=== PATIENT | female | born 1950 | race Caucasian/White ===

== ENCOUNTER 2019-11-07 13:06 | Emergency (ER) | payer MEDICARE, OTHER ==
[~2019-11-07] VITALS: Ht 160 cm; Wt 69.6 kg
[2019-11-07 13:35] VITALS: BP 138/77
--- NOTE | 2019-11-07 13:40 | NUR ---
PT OXYGEN SATURATION IS 88% PER PT THAT IS HER BASELINE. PT REFUSES OXYGEN.
== END 2019-11-07 15:18 | disposition home or self-care (01) ==
LOC: ED 14:26
DX: G35 Multiple sclerosis (principal); Z76.0 Encounter for issue of repeat prescription
CPT/HCPCS: 99283